=== PATIENT | female | born 1955 | race Caucasian/White ===

== ENCOUNTER 2017-10-20 10:28 | Emergency (ER) | payer BC ==
[2017-10-20] MEDS ORDERED: amLODIPine TAB* 5 MG PO ONE (10:41)
--- NOTE | 2017-10-20 10:45 | ED ---
Hypertension - HPI Summary HPI Summary: This patient is a 62 year old F presenting to ED with a chief complaint of HTN since earlier today. She was sent in by [facility] s/p her annual physical for work. The patient rates the pain 0/10 in severity. Symptoms aggravated by nothing. Symptoms alleviated by nothing. Patient reports blurred vision (L eye, 3 weeks ago, worsened couple days ago). Patient denies PHILIP, CP, abdominal pain, urinary sx, bowel sx, N/V/D, and SOB. The patient exerts herself on a daily basis but has had no problems. The patient has heart burn for which she forgot to take her medication for. She has an appointment with drug abuse technician tomorrow. - History of Current Complaint Chief Complaint: EDHypertension Stated Complaint: HYPERTENSION Time Seen by Provider: 10/20/17 10:34 Hx Obtained From: Patient Hx Last Menstrual Period: 2 years ago Onset/Duration: Started Hours Ago - since earlier today, Still Present Aggravating Factor(s): Nothing Alleviating Factor(s): Nothing Associated Signs & Symptoms: Other: - Patient denies PHILIP, CP, abdominal pain, urinary sx, bowel sx, N/V/D, and SOB. - Allergies/Home Medications Allergies/Adverse Reactions: Allergies Allergy/AdvReac Type Severity Reaction Status Date / Time bee venom protein (honey bee) Allergy Anaphylatic Verified 10/20/17 10:34 Shock chicken derived Allergy Nausea And Verified 10/20/17 10:34 Vomiting Egg Derived Allergy Nausea And Verified 10/20/17 10:34 Vomiting ether Allergy Nausea And Verified 10/20/17 10:34 Vomiting Influenza Virus Vaccines Allergy Nausea And Verified 10/20/17 10:34 Vomiting pseudoephedrine Allergy Palpitation Verified 10/20/17 10:34 [From Demar] s PMH/Surg Hx/FS Hx/Imm Hx Endocrine/Hematology History: Denies: Hx Diabetes, Hx Thyroid Disease Cardiovascular History: Reports: Hx Hypertension - NO PROBLEMS, TAKING GARLIC TABLETS Denies: Other Cardiovascular Problems/Disorders Respiratory History: Reports: Other Respiratory Problems/Disorders - HX OF PNEUMONIA 01/2015 - NO PROBLEMS NOW Denies: Hx Asthma, Hx Chronic Obstructive Pulmonary Disease (COPD) GI History: Reports: Hx Gastroesophageal Reflux Disease - DIET CONTROL Denies: Hx Ulcer, Other GI Disorders Musculoskeletal History: Reports: Other Musculoskeletal History - OSTEOPOROSIS Denies: Hx Osteoporosis - unsure Sensory History: Reports: Hx Contacts or Glasses - READING GLASSES Denies: Hx Hearing Aid Opthamlomology History: Reports: Hx Contacts or Glasses - READING GLASSES - Cancer History Hx Chemotherapy: No Hx Radiation Therapy: No - Surgical History Surgery Procedure, Year, and Place: BILATERAL INGUINAL [facility] Hx Anesthesia Reactions: Yes - ETHER-SEVERE NAUSEA VOMITING Infectious Disease History: No Infectious Disease History: Denies: Hx Hepatitis, Hx Human Immunodeficiency Virus (HIV), Traveled Outside the [place] in Last 30 Days - Family History Known Family History: Positive: Other Family History: glaucoma and cataracts - Social History Alcohol Use: None Substance Use Type: Reports: None Smoking Status (MU): Never Smoked Tobacco Have You Smoked in the Last Year: No Review of Systems Positive: Blurred Vision - L eye, 3 weeks ago, worsened couple days ago Positive: Other - HTN. Negative: Chest Pain Negative: Shortness Of Breath Positive: Other - denies bowel sx. Negative: Abdominal Pain, Vomiting, Diarrhea , Nausea Positive: no symptoms reported Negative: Headache All Other Systems Reviewed And Are Negative: Yes Physical Exam - Summary Physical Exam Summary: Appearance: Well appearing, no pain distress Skin: warm, dry, reflects adequate perfusion Head/face: normal Eyes: EOMI, CARLOS ENT: normal Neck: supple, non-tender Respiratory: CTA, breath sounds present Cardiovascular: Tachycardia, regular rhythm, pulses symmetrical Abdomen: non-tender, soft Bowel Sounds: present Musculoskeletal: normal, strength/ROM intact Neuro: normal, sensory motor intact, A&Ox3 Triage Information Reviewed: Yes Vital Signs On Initial Exam: Initial Vitals Temp Pulse Resp BP Pulse Ox 98.4 F 99 20 223/112 99 10/20/17 10:30 10/20/17 10:30 10/20/17 10:30 10/20/17 10:30 10/20/17 10:30 Vital Signs Reviewed: Yes Diagnostics - Vital Signs Vital Signs Temp Pulse Resp BP Pulse Ox 10/20/17 10:30 98.4 F 99 20 223/112 99 - Laboratory Result Diagrams: 10/20/17 11:11 10/20/17 11:11 Lab Statement: Any lab studies that have been ordered have been reviewed, and results considered in the medical decision making process. - EKG 1157 Cardiac Rate: NL - 74 BPM EKG Rhythm: Sinus Rhythm EKG Interpretation: normal axis interval and ST Hypertension Course/Dx - Course Course Of Treatment: Patient with asymptomatic hypertension who hasn't been to a doctor in some time. Blood pressure elevated at primary care office today where she was given a work physical. Started oral medications here given the pressures were so high. She has had chronic blurry vision but has appointment with ophthalmology tomorrow. EKG, renal function normal. Discharged to follow up closely with primary care physician or the [facility] follow-up. - Diagnoses Differential Diagnosis/HQI PQRI: Hypertension, Hypertensive Crisis, Hypertensive Urgency, Renal Disease, Other - Thyroid disease Provider Diagnoses: Elevated blood pressure reading without diagnosis of hypertension Discharge - Sign-Out/Discharge Documenting (check all that apply): Patient Departure - Discharge Plan Condition: Stable Disposition: HOME Prescriptions: Amlodipine Besylate [Norvasc 10 mg tab] 10 mg PO DAILY #30 tab Patient Education Materials: Low-Sodium Diet (ED), Hypertension (ED) Referrals: [facility] [Outside] [facility] [Outside] Carito Stauffer MD [Primary Care Provider] - Additional Instructions: call doctor as scheduled tomorrow. Call the [facility] for follow- up promptly in the next 2 days. Also call the referral line to be set up with a primary care physician. Low-salt diet. Return with chest pain, difficulty breathing, new changes in vision, new symptoms or other concerns. - Billing Disposition and Condition Condition: STABLE Disposition: Home - Attestation Statements Document Initiated by Leila: Yes Documenting Scribe: Marquise Case Provider For Whom Hardikibsally is Documenting (Include Credential): Gerald Vargas MD Scribe Attestation: Marquise Nelson scribed for Gerald Vargas MD on 10/20/17 at 1238. Scribe Documentation Reviewed: Yes Provider Attestation: The documentation as recorded by the Marquise mike accurately reflects the service I personally performed and the decisions made by me, Gerald Vargas MD
[2017-10-20] MEDS ORDERED: Famotidine TAB* 20 MG PO ONE ×2 (10:51→11:00)
[2017-10-20 11:20] LABS: ABS Basophils 0.1 10^3/ul (0-0.2); ABS Eosinophils 0 10^3/ul (0-0.6); ABS Lymphocytes 1.3 10^3/ul (1.0-4.8); ABS Monocytes 0.5 10^3/ul (0-0.8); ABS Neutrophils 4.4 10^3/ul (1.5-7.7); ABS Nucleated RBC 0 10^3/ul; Eosinophil % 0.7 % (0-6); Hematocrit 40 % (35-47); Hemoglobin 13.5 g/dl (12.0-16.0); Lymphocyte % 20.9 % (25-47); Mean Corpuscular HGB Conc 34 g/dl (31-36); Mean Corpuscular Hemoglobin 31 pg (27-31); Mean Corpuscular Volume 91 fL (80-97); Nucleated Red Blood Cells % 0; Platelet Count 256 10^3/ul (150-450); Red Blood Count 4.39 10^6/ul (4.00-5.40); Red Cell Distribution Width 13 % (10.5-15); White Blood Count 6.3 10^3/ul (3.5-10.8)
[2017-10-20 11:40] LABS: EGFR Non-African American 76.2 (>60)
[2017-10-20] MEDS ORDERED: cloNIDine TAB* 0.1 MG PO ONE (12:01)
[2017-10-20 12:15] VITALS: BP 200/105
== END 2017-10-20 12:59 | disposition home or self-care (01) ==
LOC: ED 10:28
DX: R03.0 Elevated blood-pressure reading, without diagnosis of hypertension (principal); H53.8 Other visual disturbances
CPT/HCPCS: 36415; 80053; 84443; 85025; 93005; 99283; A9270-GY

== ENCOUNTER 2017-12-04 15:51 | Emergency (ER) | payer BC ==
[2017-12-04] MEDS ORDERED: Ibuprofen TAB* 400 MG PO ONE (16:07)
--- NOTE | 2017-12-04 16:18 | ED ---
Adult Trauma - HPI Summary HPI Summary: This patient is a 62 year old F presenting to [facility] with a chief complaint of left wrist pain after a fall [employer]. Patient was shopping at [employer] when she slipped and fell. Her caught her in time to stop her from hitting her head but she fell on her left hand, which is the patients dominant hand. Pt reports pain in her left hand radiating to her wrist. The patient rates the pain 8/10 in severity. Pt denies syncope. She previously fractured her left risk and has a surgical plate with ten screws on her radius. - History of Current Complaint Chief Complaint: EDExtremityUpper Stated Complaint: LT HAND INJURY Time Seen by Provider: 12/04/17 16:01 Hx Obtained From: Patient Hx Last Menstrual Period: 2 years ago Mechanism of Injury: Fall Loss of Consciousness: no loss of consciousness Onset of Pain: Post Accident, Prior to Arrival Onset Severity: Moderate Current Severity: Moderate Pain Intensity: 8 Pain Scale Used: 0-10 Numeric Location: Radiates to: - Left wrist, Other - Left hand - Allergy/Home Medications Allergies/Adverse Reactions: Allergies Allergy/AdvReac Type Severity Reaction Status Date / Time bee venom protein (honey bee) Allergy Anaphylatic Verified 12/04/17 15:57 Shock chicken derived Allergy Nausea And Verified 12/04/17 15:57 Vomiting Egg Derived Allergy Nausea And Verified 12/04/17 15:57 Vomiting ether Allergy Nausea And Verified 12/04/17 15:57 Vomiting Influenza Virus Vaccines Allergy Nausea And Verified 12/04/17 15:57 Vomiting pseudoephedrine Allergy Palpitation Verified 12/04/17 15:57 [From [facility]] s PMH/Surg Hx/FS Hx/Imm Hx Endocrine/Hematology History: Denies: Hx Diabetes, Hx Thyroid Disease Cardiovascular History: Reports: Hx Hypertension - NO PROBLEMS, TAKING GARLIC TABLETS Denies: Other Cardiovascular Problems/Disorders Respiratory History: Reports: Other Respiratory Problems/Disorders - HX OF PNEUMONIA 01/2015 - NO PROBLEMS NOW Denies: Hx Asthma, Hx Chronic Obstructive Pulmonary Disease (COPD) GI History: Reports: Hx Gastroesophageal Reflux Disease - DIET CONTROL Denies: Hx Ulcer, Other GI Disorders Musculoskeletal History: Reports: Other Musculoskeletal History - OSTEOPOROSIS Denies: Hx Osteoporosis - unsure Sensory History: Reports: Hx Contacts or Glasses - READING GLASSES Denies: Hx Hearing Aid Opthamlomology History: Reports: Hx Contacts or Glasses - READING GLASSES - Cancer History Hx Chemotherapy: No Hx Radiation Therapy: No - Surgical History Surgery Procedure, Year, and Place: BILATERAL INGUINAL [facility] Hx Anesthesia Reactions: Yes - ETHER-SEVERE NAUSEA VOMITING Infectious Disease History: No Infectious Disease History: Denies: Hx Hepatitis, Hx Human Immunodeficiency Virus (HIV), Traveled Outside the [place] in Last 30 Days - Family History Known Family History: Negative: Cardiac Disease, Hypertension, Diabetes Family History: glaucoma and cataracts - Social History Alcohol Use: None Substance Use Type: Reports: None Smoking Status (MU): Never Smoked Tobacco Have You Smoked in the Last Year: No Review of Systems Negative: Fever Positive: Other - Left hand/wrist pain Negative: Syncope All Other Systems Reviewed And Are Negative: Yes Physical Exam - Summary Physical Exam Summary: Appearance: Well appearing, no pain distress Skin: warm, dry, reflects adequate perfusion. Volar surgical scar over radius, Ecchymosis over the dorsal aspect of the 4th metacarpal head. Head/face: normal Eyes: EOMI, CARLOS ENT: mucous membranes moist Neck: supple, non-tender Respiratory: CTA, breath sounds present Cardiovascular: RRR, pulses symmetrical Abdomen: non-tender, soft Bowel Sounds: present Musculoskeletal: normal, strength/ROM intact. NV intact. Neuro: normal, sensory motor intact, A&Ox3 Triage Information Reviewed: Yes Vital Signs On Initial Exam: Initial Vitals Temp Pulse Resp BP Pulse Ox 97 F 82 16 171/78 98 12/04/17 15:57 12/04/17 15:57 12/04/17 15:57 12/04/17 15:57 12/04/17 15:57 Vital Signs Reviewed: Yes Procedures - Splinting Left Upper Extremity Location: Left hand/wrist. Pre-Made Type: velcro Splint: wrist Pre-Proc Neuro Vasc Exam: normal Post-Proc Neuro Vasc Exam: normal Diagnostics - Vital Signs Vital Signs Temp Pulse Resp BP Pulse Ox 12/04/17 15:57 97 F 82 16 171/78 98 - Laboratory Lab Statement: Any lab studies that have been ordered have been reviewed, and results considered in the medical decision making process. - Radiology Left Hand XR Xray Interpretation: No Acute Changes Radiology Interpretation Completed By: Radiologist - Negative for metacarpal of phalangeal fracture or articular malalignment. Mild diffuse soft tissue swelling. ED Provider has reviewed this report. Left Wrist XR Xray Interpretation: No Acute Changes Radiology Interpretation Completed By: Radiologist - Healed distal radial fracure with volar cortical plate and screws remaining in place without evidence for component failure or loosening. 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 No acute fracture evident at the wrist. Negative for dislocation. 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 Mild radial and volar soft tissue swelling. ED Provider has reviewed this report. Adult Trauma Course/Dx - Course Course Of Treatment: Patient with prior ORIF of the left wrist with fall with ecchymosis at the fourth metacarpal head. There is no fracture of the wrist or hand on x-ray. She has good range of motion. She was splinted and is neurovascularly intact. - Diagnoses Differential Diagnosis/HQI/PQRI: Positive: Contusion(s), Fracture Provider Diagnoses: Contusion of hand, left, Contusion of wrist, left Discharge - Sign-Out/Discharge Documenting (check all that apply): Patient Departure - Discharge - Discharge Plan Condition: Stable Disposition: HOME Patient Education Materials: Contusion in Adults (ED) Referrals: Carito Stauffer MD [Primary Care Provider] - Additional Instructions: Ice, ibuprofen and splint for comfort. Return if worse, new symptoms or other concerns. - Billing Disposition and Condition Condition: STABLE Disposition: Home - Attestation Statements Document Initiated by Leila: Yes Documenting Scribe: Rajiv Trujillo Provider For Whom Leila is Documenting (Include Credential): Gerald Vargas MD Scribe Attestation: Rajiv Nelson scribed for Gerald Vargas MD on 12/04/17 at 1718. Scribe Documentation Reviewed: Yes Provider Attestation: The documentation as recorded by the Rajiv mike accurately reflects the service I personally performed and the decisions made by me, Gerald Vargas MD
--- NOTE | 2017-12-04 16:33 | RAD ---
INDICATION: LEFT wrist and hand pain post fall. ORIF 3 years ago. COMPARISON: March 14, 2015 TECHNIQUE: AP and lateral views LEFT wrist. REPORT AND IMPRESSION: #. Healed distal radial fracture with volar cortical plate and screws remaining in place without evidence for component failure or loosening. #. 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 #. No acute fracture evident at the wrist. Negative for dislocation. #. 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 #. Mild radial and volar soft tissue swelling.
--- NOTE | 2017-12-04 16:35 | RAD ---
INDICATION: LEFT wrist and hand pain post fall. Previous ORIF 3 years ago. COMPARISON: LEFT wrist of the same date. TECHNIQUE: AP and lateral hand views LEFT hand. REPORT AND IMPRESSION: #. Refer to dedicated wrist report of the same date for wrist findings. #. Negative for metacarpal or phalangeal fracture or articular malalignment. Mild diffuse soft tissue swelling.
[2017-12-04 17:01] VITALS: BP 164/79
== END 2017-12-04 16:45 | disposition home or self-care (01) ==
LOC: ED 15:51
DX: S60.222A Contusion of left hand, initial encounter (principal); S60.212A Contusion of left wrist, initial encounter; W01.0XXA Fall on same level from slipping, tripping and stumbling without subsequent striking against object, initial encounter; Y92.512 Supermarket, store or market as the place of occurrence of the external cause; K21.9 Gastro-esophageal reflux disease without esophagitis; I10 Essential (primary) hypertension
CPT/HCPCS: 29125; 99282; A9270-GY